=== PATIENT | male | born 1970 | race Caucasian/White ===

== ENCOUNTER 2020-09-28 10:45 | Emergency (ER) | payer BC ==
[~2020-09-28] VITALS: Ht 175.3 cm; Wt 83.5 kg
--- NOTE | 2020-09-28 11:10 | NUR ---
Pt brought into room and changing into gown.
--- NOTE | 2020-09-28 11:15 | NUR ---
Pt placed in covid isolation precautions with isolation cart and sign placed outside room. Pt placed on bedside monitor with noted elevated HR with BP slightly elevated and room air SpO2 noted to vassilate between 93% and 94%. technology services manager completed and IV started with labs drawn. Call light in reach and room chair placed at bedside per pt request for back pain issues with ama.
--- NOTE | 2020-09-28 11:25 | NUR ---
MD at bedside for exam at this time.
[2020-09-28] MEDS ORDERED: ALBUTEROL/IPRATROPIUM 2.5MG/0.5MG, 3 ML ONE (11:40)
[2020-09-28 11:47] LABS: MEAN CORPUSCULAR HEMOGLOBIN 30.7 pg (27.5-34.5); MEAN CORPUSCULAR HGB CONC 34.6 g/dL (33.2-36.2); MEAN PLATELET VOLUME 7.6 fL (7.4-10.4); PLATELET COUNT 465 x10^3/uL (130-400); RED BLOOD COUNT 5.12 x10^6/uL (4.38-5.82); RED CELL DISTRIBUTION WIDTH 12.2 % (9.4-14.8)
--- NOTE | 2020-09-28 11:50 | NUR ---
IV bolus started and infusing well. Pt instructed on how to use nebulizer with good return demonstration noted.
[2020-09-28 11:55] LABS: ALBUMIN 3.5 g/dL (3.4-5.0); ANION GAP 6 mmol/L (5-15); CALCIUM 8.8 mg/dL (8.5-10.1); CHLORIDE 104 mmol/L (98-107); CREATININE 0.84 mg/dL (0.7-1.3)
[2020-09-28] MEDS ORDERED: SODIUM CHLORIDE 0.9% 1,000ML IVBOLUS ONE (12:00)
[2020-09-28] MEDS ORDERED: ALBUTEROL/IPRATROPIUM 2.5MG/0.5MG, 3 ML NPPB ONE (12:00)
[2020-09-28] MEDS ORDERED: SODIUM CHLORIDE FLUSH 10ML SYR IVF ONE (12:00)
--- NOTE | 2020-09-28 12:20 | NUR ---
NPPB tx completed with RA SpO2 noted at 95% at this time. IV bolus continues to infuse well, and warm blanket provided for c/o feeling cool since fluids started.
[2020-09-28] MEDS ORDERED: ALBU6.7H8 IH (12:24)
[2020-09-28 12:33] LABS: MD YES
[2020-09-28 12:34] LABS: <PLATELET ESTIMATE> ADEQUATE; <PLT MORPHOLOGY> NORMAL PLT MORPH; <RBC MORPHOLOGY> NORMAL; BAND#(MANUAL) 0.84 x10^3/uL; BANDS%(MANUAL) 6 % (0-7); EOS#(MANUAL) 0.14 x10^3/uL (0.0-0.4); EOS% (MANUAL) 1 % (1-7); LYMPH#(MANUAL) 0.42 x10^3/uL (1-3.4); LYMPHS% (MANUAL) 3 % (22-44); METAMYELOCYTES# (MANUAL) 0.14 x10^3/uL (0-0); METAMYELOCYTES% (MANUAL) 1 % (0-1); MONOS#(MANUAL) 1.68 x10^3/uL (0.3-2.7); MONOS% (MANUAL) 12 % (2-9); SEG#(MANUAL) 10.78 x10^3/uL (1.8-6.8); SEGS% (MANUAL) 77 % (42-75)
--- NOTE | 2020-09-28 12:44 | NUR ---
Pt needs to use the restroom. Secondary to covid possibility, pt provided urinal to keep him from walking in hallways.
--- NOTE | 2020-09-28 13:09 | NUR ---
Urinal emptied with 225 mL dark yellow uop noted. Pt states he now has a moderate NGUYEN and would like something for pain. MD notified and pt up for recheck.
[2020-09-28] MEDS ORDERED: ACETAMINOPHEN 500 MG TABLET ONE (13:27)
[2020-09-28] MEDS ORDERED: ACETAMINOPHEN 500 MG TABLET PO ONE (13:30)
--- NOTE | 2020-09-28 13:32 | NUR ---
Medicated with Tylenol as ordered for NGUYEN at this time. States he has been getting them since feeling sick off and on. HR remains elevated and BP WNL with RA SpO2 93-94%. Pt aware he is waiting on recheck by at this time.
--- NOTE | 2020-09-28 14:40 | NUR ---
Pt with continued c/o NGUYEN at this time. at bedside for reassessment.
--- NOTE | 2020-09-28 14:48 | NUR ---
MD at bedside for reassessment and discussion of plan
[2020-09-28] MEDS ORDERED: HYDROcodone/APAP 5/325 TABLET PO ONE (15:00)
--- NOTE | 2020-09-28 15:00 | NUR ---
Report given to YUE Naranjo and care transferred.
[2020-09-28] MEDS ORDERED: HYDROcodone/APAP 5/325 TABLET ONE (15:01)
--- NOTE | 2020-09-28 15:09 | NUR ---
Report from YUE Bradford. [facility].
--- NOTE | 2020-09-28 15:40 | NUR ---
IV removed, catheter intact, hemostasis achieved.
--- NOTE | 2020-09-28 15:41 | NUR ---
EKG done and seen by provider.
[2020-09-28 15:50] VITALS: BP 112/86
== END 2020-09-28 15:53 | disposition home or self-care (01) ==
LOC: ED 12:14
DX: J06.9 Acute upper respiratory infection, unspecified (principal); Z20.828 Contact with and (suspected) exposure to other viral communicable diseases; R09.1 Pleurisy; R51.9 Headache, unspecified; R05 Cough; R06.00 Dyspnea, unspecified; Z79.899 Other long term (current) drug therapy
CPT/HCPCS: 36415; 80048; 82040; 85025; 87635; 93005; 94640; 96360; 99285; J7030